=== PATIENT | male | born 1930 | race Caucasian/White ===

== ENCOUNTER 2019-01-01 23:17 | Emergency (ER) | payer OTHER ==
[~2019-01-01] VITALS: Ht 190.5 cm; Wt 74.8 kg
[~2019-01-01 23:17] MED LIST: AMOX1TAB12 PO; CATAFLAM50 MG PO; CELEBREX100 MG PO; DICLOFENAC SODI50 MG PO; DIOVAN HCT 320/1 TAB; IRON1TAB4 PO; LEVAQUIN500 MG PO; LIPITOR20 MG; NABUMETONE750 MG PO; NIFEDIPINE20 MG; ORPH100T PO; PLAVIX75 MG; TENORMIN50 MG; ULTRACET PO; VOLTAREN100 GM TP
[2019-01-01] MEDS ORDERED: COREG CR40 MG (23:40)
[2019-01-01] MEDS ORDERED: ASPIR 8181 MG (23:40)
[2019-01-01] MEDS ORDERED: PLAVIX75 MG (23:40)
== END 2019-01-02 12:36 | disposition left against medical advice (07) ==
LOC: ER 23:17 → CPU-OBS 23:22 → ER 01-02 12:36
DX: I11.0 Hypertensive heart disease with heart failure (principal); I50.9 Heart failure, unspecified; I25.10 Atherosclerotic heart disease of native coronary artery without angina pectoris; E87.6 Hypokalemia; D64.89 Other specified anemias; R07.89 Other chest pain